=== PATIENT | female | born 1955 | race Caucasian/White ===

== ENCOUNTER 2020-02-19 13:21 | Outpatient (CLI) | payer MEDICARE ==
[2020-02-19 14:01] LABS: MEAN CORPUSCULAR HEMOGLOBIN 27.9 pg (27.0-34.8); MEAN CORPUSCULAR HGB CONC 31.1 g/dL (32.4-35.8); MEAN CORPUSCULAR VOLUME 89.7 fL (80-100); MEAN PLATELET VOLUME 7.4 fL (7.4-10.4); PLATELET COUNT 566 x10^3/uL (130-400); RED BLOOD COUNT 3.89 x10^6/uL (3.82-5.3); RED CELL DISTRIBUTION WIDTH 24.8 % (9.6-15.2)
[2020-02-19 14:08] LABS: ALBUMIN 3.6 g/dL (3.4-5.0); ANION GAP 6 mmol/L (5-15); CALCIUM 9.4 mg/dL (8.5-10.1); CHLORIDE 104 mmol/L (98-107); CHOLESTEROL, TOTAL 212 mg/dL (140-239)
[2020-02-19 14:18] LABS: % IRON SATURATION 7 % (20-55); ALANINE AMINOTRANSFERASE 15 U/L (12-78); ALKALINE PHOSPHATASE 125 U/L (45-117); BILIRUBIN,TOTAL 0.4 mg/dL (0.2-1.0); CHOL/HDL RATIO 2.6; CREATININE 0.88 mg/dL (0.55-1.02); HDL CHOL % 38 % (28-40); HDL CHOLESTEROL (DIRECT) 81 mg/dL (40-60); IRON LEVEL 34 mcg/dL (50-170); LDL CHOLESTEROL,CALCULATED 110 mg/dL (54-169); LDL/HDL RATIO 1.4 (0.5-3.0); TOTAL IRON BINDING CAPACITY 475 mcg/dL (250-450); TOTAL PROTEIN 7.6 g/dL (6.4-8.2); TRIGLYCERIDES 104 mg/dL (50-200); VLDL CHOLESTEROL 21 mg/dL (0-25)
[2020-02-19 14:54] LABS: HCT (SEDRATE) 34.9 % (34.6-47.8)
[2020-02-19 14:55] LABS: BASOPHILS # (AUTO) 0.06 x10^3/uL (0-0.1); BASOPHILS % (AUTO) 1 % (0-1); EOSINOPHILS # (AUTO) 0.08 x10^3/uL (0-0.4); EOSINOPHILS % (AUTO) 1 % (1-7); LYMPHOCYTES # (AUTO) 0.98 x10^3/uL (1-3.4); LYMPHOCYTES % (AUTO) 10 % (22-44); MD MORPH REVIEW ONLY; MONOCYTES # (AUTO) 0.37 x10^3/uL (0.2-0.8); MONOCYTES % (AUTO) 4 % (2-9); NEUTROPHILS # (AUTO) 8.04 x10^3/uL (1.8-6.8); NEUTROPHILS % (AUTO) 84 % (42-75)
[2020-02-19 14:57] LABS: RETICULOCYTE COUNT % 1.21 % (0.5-1.5)
[2020-02-19 14:58] LABS: <PLATELET ESTIMATE> INCREASED; <PLT MORPHOLOGY> NORMAL PLT MORPH; ANISOCYTOSIS 1+; HYPOCHROMIA 1+; POLYCHROMASIA 1+; RED BLOOD COUNT 3.89 x10^6/uL (3.82-5.3)
[2020-02-19 15:00] LABS: ABSOLUTE RETICS # 0.047 x10^6/uL (0.5-2.5)
[2020-02-19] MEDS ORDERED: OMNIPAQUE 350 MG/ML, 75ML BOTTLE ONE (15:01)
== END 2020-02-19 23:59 | disposition home or self-care (01) ==
LOC: RAD 13:21
PROVIDERS: ATTEND Internal Medicine
DX: K57.30 Diverticulosis of large intestine without perforation or abscess without bleeding (principal); K55.9 Vascular disorder of intestine, unspecified; E87.6 Hypokalemia; R63.0 Anorexia; N28.1 Cyst of kidney, acquired; K44.9 Diaphragmatic hernia without obstruction or gangrene; M85.80 Other specified disorders of bone density and structure, unspecified site; D64.9 Anemia, unspecified; Z79.899 Other long term (current) drug therapy
CPT/HCPCS: 36415; 74174; 80053; 80061; 82728; 83540; 83550; 83735; 84443; 85025; 85045; 85651; 86140; 86301; 86803; Q9967

== ENCOUNTER → 2020-03-01 | Outpatient (CLI) | payer MEDICARE ==
[~2020-03-01] MED LIST: OMNIPAQUE 350 MG/ML, 100ML BOTTLE ONE
== END | disposition home or self-care (01) ==
LOC: CFH 13:17
PROVIDERS: ATTEND Internal Medicine
DX: K76.0 Fatty (change of) liver, not elsewhere classified (principal); K44.9 Diaphragmatic hernia without obstruction or gangrene; K57.30 Diverticulosis of large intestine without perforation or abscess without bleeding; M48.54XA Collapsed vertebra, not elsewhere classified, thoracic region, initial encounter for fracture; M47.814 Spondylosis without myelopathy or radiculopathy, thoracic region; I70.0 Atherosclerosis of aorta; M85.88 Other specified disorders of bone density and structure, other site; N28.1 Cyst of kidney, acquired
CPT/HCPCS: 71260; 74178; Q9967

== ENCOUNTER 2020-03-17 10:07 | Outpatient (CLI) | payer MEDICARE ==
[2020-03-17] MEDS ORDERED: POLY17PO5 PO (11:48)
[2020-03-17] MEDS ORDERED: ASPI-691 PO (11:48)
[2020-03-17] MEDS ORDERED: OMEP40CA42 PO (11:48)
[2020-03-17] MEDS ORDERED: Iron PO (11:48)
[2020-03-17] MEDS ORDERED: IBUP200C8 PO (11:48)
[2020-03-17] MEDS ORDERED: ONDA4TAB7 PO (11:48)
[2020-03-29] MEDS ORDERED: OXYC-302 PO (09:30)
== END 2020-03-17 23:59 | disposition home or self-care (01) ==
LOC: STAR 10:07
PROVIDERS: ATTEND Internal Medicine Gastroenterology
DX: Z01.818 Encounter for other preprocedural examination (principal); R19.09 Other intra-abdominal and pelvic swelling, mass and lump
CPT/HCPCS: 93005

== ENCOUNTER 2020-03-18 11:01 | Day surgery (SDC) | payer MEDICARE ==
[~2020-03-18] VITALS: Ht 167.6 cm; Wt 58.3 kg
[~2020-03-18 11:01] MED LIST changes: +ASPI-691 PO; +IBUP200C8 PO; +Iron PO; +OMEP40CA42 PO; -OMNIPAQUE 350 MG/ML, 100ML BOTTLE ONE; +ONDA4TAB7 PO; +POLY17PO5 PO
[2020-03-18] MEDS ORDERED: LACTATED RINGERS 1,000 ML IV SCH (11:15)
[2020-03-18] MEDS ORDERED: CHLORHEXIDINE 15 ML UDC ONE (11:22)
[2020-03-18] MEDS ORDERED: CHLORHEXIDINE 15 ML UDC MM ONE (11:30)
[2020-03-18 11:40] VITALS: BP 160/87
[2020-03-18] MEDS ORDERED: ROCURONIUM 10 MG/ML,10ML ONE (13:49)
[2020-03-18] MEDS ORDERED: SUCCINYLCHOLINE 20 MG/ML, 10ML ONE (13:49)
[2020-03-18] MEDS ORDERED: PROPOFOL 10 MG/ML, 20ML ONE (13:49)
[2020-03-18] MEDS ORDERED: ONDANSETRON 2MG/ML, 2ML ONE (13:49)
[2020-03-18] MEDS ORDERED: DEXAMETHASONE 4 MG/ML, 1ML ONE (13:49)
[2020-03-18] MEDS ORDERED: FENTANYL PF 100 MCG/2ML ONE ×2 (13:58→15:32)
[2020-03-18] MEDS ORDERED: MIDAZOLAM 1 MG/ML, 2ML IV PRN (15:00)
[2020-03-18] MEDS ORDERED: LABETALOL 5MG/ML, 20ML IV PRN (15:00)
[2020-03-18] MEDS ORDERED: HALOPERIDOL 5 MG/ML IV PRN (15:00)
[2020-03-18] MEDS ORDERED: ALBUTEROL SULFATE 2.5 MG/3 ML NPPB PRN (15:00)
[2020-03-18] MEDS ORDERED: ONDANSETRON 2MG/ML, 2ML IV PRN (15:00)
[2020-03-18] MEDS ORDERED: MEPERIDINE/PF 25MG/ML,1ML IVPush PRN (15:00)
[2020-03-18] MEDS ORDERED: OXYcodone 5 MG/5 ML ORAL.SOL UDC PO PRN (15:00)
[2020-03-18] MEDS ORDERED: HYDROmorphone 2 MG/ML, 1ML IVPush PRN (15:00)
[2020-03-18] MEDS ORDERED: ONDANSETRON ODT 8 MG PO PRN (15:00)
[2020-03-18] MEDS ORDERED: EPHEDRINE 50 MG/ML, 1ML IVPush PRN (15:00)
[2020-03-18] MEDS ORDERED: hydrALAzine 20 MG/ML, 1ML IV PRN (15:00)
[2020-03-18] MEDS ORDERED: DIAZEPAM 5 MG/ML, 2ML IVPush PRN (15:00)
[2020-03-18] MEDS ORDERED: PROMETHAZINE 25 MG/ML, 1ML IV PRN (15:00)
[2020-03-18] MEDS ORDERED: ACETAMINOPHEN 325 MG TABLET PO PRN (15:00)
[2020-03-18] MEDS ORDERED: PROMETHAZINE 12.5 MG SUPP PR PRN (15:00)
[2020-03-18] MEDS ORDERED: LABETALOL 5MG/ML, 20ML ONE (15:16)
[2020-03-18] MEDS ORDERED: OXYcodone 5 MG/5 ML ORAL.SOL UDC ONE (15:32)
[2020-03-18] MEDS: FENTANYL PF 100 MCG/2ML IV PRN ×2 (15:33→15:38)
[2020-03-18] MEDS ORDERED: PIPERACILLIN/TAZO/PMX 3.375GM 50 ML IV ONE (15:40)
== END 2020-03-18 17:15 | disposition home or self-care (01) ==
LOC: OUT 11:01
PROVIDERS: ATTEND Internal Medicine Gastroenterology
DX: K86.89 Other specified diseases of pancreas (principal); C25.1 Malignant neoplasm of body of pancreas; S49.92XD Unspecified injury of left shoulder and upper arm, subsequent encounter; K55.9 Vascular disorder of intestine, unspecified; K59.00 Constipation, unspecified; D50.9 Iron deficiency anemia, unspecified; I10 Essential (primary) hypertension; F12.90 Cannabis use, unspecified, uncomplicated; R63.4 Abnormal weight loss; Z68.20 Body mass index [BMI] 20.0-20.9, adult; Z79.899 Other long term (current) drug therapy; Z98.890 Other specified postprocedural states; Z80.0 Family history of malignant neoplasm of digestive organs; X58.XXXD Exposure to other specified factors, subsequent encounter
CPT/HCPCS: 43242; 88172; 88173; 88177; 88307; J0330; J1100; J2405; J2543; J2704; J3010; J7120

== ENCOUNTER 2020-04-23 08:09 | Outpatient (CLI) | payer MEDICARE ==
[~2020-04-23 08:09] MED LIST changes: +OXYC-302 PO
[2020-04-23] MEDS ORDERED: MULT-658 PO (08:38)
[2020-04-26] MEDS ORDERED: IBUP-1902 PO (12:54)
[2020-04-26] MEDS ORDERED: OMEP-110 PO (12:54)
[2020-04-29] MEDS ORDERED: SENN-193 PO (15:26)
[2020-04-29] MEDS ORDERED: AMOX1TAB64 PO ×2 (15:26)
[2020-04-29] MEDS ORDERED: POLY17PO5 PO (15:26)
[2020-04-29] MEDS ORDERED: METR500T PO (15:26)
[2020-04-29] MEDS ORDERED: HYDR-3237 PO (15:27)
[2020-04-30] MEDS ORDERED: OXYC-302 PO (11:12)
[2020-04-30] MEDS ORDERED: AMOX1TAB64 PO (11:12)
== END 2020-04-23 23:59 | disposition home or self-care (01) ==
LOC: STAR 08:09
PROVIDERS: ATTEND Surgery
DX: Z11.59 Encounter for screening for other viral diseases (principal)
CPT/HCPCS: U0001-CS

== ENCOUNTER → 2020-05-14 | Outpatient (CLI) | payer MEDICARE ==
[~2020-05-14] MED LIST changes: +AMOX1TAB64 PO; +HYDR-3237 PO; +IBUP-1902 PO; +METR500T PO; +MULT-658 PO; +OMEP-110 PO; +OMNIPAQUE 350 MG/ML, 100ML BOTTLE ONE; +SENN-193 PO
== END | disposition home or self-care (01) ==
LOC: EDSTATUS 05-12 11:30 → RAD 09:23
PROVIDERS: ATTEND Internal Medicine Hematology & Oncology
DX: C25.2 Malignant neoplasm of tail of pancreas (principal); M51.34 Other intervertebral disc degeneration, thoracic region; K76.0 Fatty (change of) liver, not elsewhere classified; N28.1 Cyst of kidney, acquired; I70.0 Atherosclerosis of aorta; M48.54XA Collapsed vertebra, not elsewhere classified, thoracic region, initial encounter for fracture
CPT/HCPCS: 71260; 74177; Q9967

== ENCOUNTER 2020-05-28 06:07 | Day surgery (SDC) | payer MEDICARE ==
[~2020-05-28] VITALS: Ht 167.6 cm; Wt 54.0 kg
[~2020-05-28 06:07] MED LIST changes: -OMNIPAQUE 350 MG/ML, 100ML BOTTLE ONE
[2020-05-28] MEDS ORDERED: LACTATED RINGERS 1,000 ML IV SCH (06:40)
[2020-05-28 06:45] VITALS: BP 140/96
[2020-05-28] MEDS ORDERED: FENTANYL PF 100 MCG/2ML ONE (06:47)
[2020-05-28] MEDS ORDERED: BUPIVACAINE/PF 0.5% ONE (06:48)
[2020-05-28] MEDS ORDERED: HEPARIN 1,000 UNITS/ML, 10ML ONE (06:48)
[2020-05-28] MEDS ORDERED: OXYcodone 5 MG/5 ML ORAL.SOL UDC PO PRN (07:00)
[2020-05-28] MEDS ORDERED: HYDROmorphone 1 MG/ML, 1ML INJ IVPush PRN (07:00)
[2020-05-28] MEDS ORDERED: ONDANSETRON 2MG/ML, 2ML IVPush PRN (07:00)
[2020-05-28] MEDS ORDERED: PROMETHAZINE 25 MG/ML, 1ML IVPush PRN (07:00)
[2020-05-28] MEDS ORDERED: FENTANYL PF 100 MCG/2ML IV PRN (07:00)
[2020-05-28] MEDS ORDERED: DIAZEPAM 5 MG/ML, 2ML IVPush PRN (07:00)
[2020-05-28] MEDS ORDERED: CHLORHEXIDINE 15 ML UDC MM ONE (07:00)
[2020-05-28] MEDS ORDERED: ACETAMINOPHEN 325 MG TABLET PO PRN (07:00)
[2020-05-28] MEDS ORDERED: MEPERIDINE/PF 25MG/0.5ML IVPush PRN (07:00)
[2020-05-28] MEDS ORDERED: ONDANSETRON 2MG/ML, 2ML ONE (07:09)
[2020-05-28] MEDS ORDERED: SUGAMMADEX 200 MG/2 ML IVPush ONE (07:09)
[2020-05-28] MEDS ORDERED: CEFAZOLIN 1,000 MG ONE (07:09)
[2020-05-28] MEDS ORDERED: PROPOFOL 10 MG/ML, 20ML ONE (07:09)
[2020-05-28] MEDS ORDERED: SUCCINYLCHOLINE 20 MG/ML, 10ML ONE (07:09)
[2020-05-28] MEDS ORDERED: ROCURONIUM 10 MG/ML,10ML ONE (07:09)
[2020-05-28] MEDS ORDERED: ACETAMINOPHEN 650 MG/20.3 ML UDC ONE (08:42)
[2020-05-28] MEDS ORDERED: OXYcodone 5 MG/5 ML ORAL.SOL UDC ONE (08:42)
[2020-06-22] MEDS ORDERED: SERT50TA PO (13:04)
[2020-06-23] MEDS ORDERED: LIPA1CAP61 PO (17:24)
== END 2020-05-28 10:00 | disposition home or self-care (01) ==
LOC: OUT 06:07
PROVIDERS: ATTEND Surgery
DX: C25.9 Malignant neoplasm of pancreas, unspecified (principal); Z11.59 Encounter for screening for other viral diseases; K57.92 Diverticulitis of intestine, part unspecified, without perforation or abscess without bleeding; Z90.49 Acquired absence of other specified parts of digestive tract
CPT/HCPCS: 36415; 36561; 77001; 87635; C1788; J0330; J0690; J1644; J2405; J2704; J3010; J7120

== ENCOUNTER → 2020-06-07 | Outpatient (CLI) | payer MEDICARE | END | disposition home or self-care (01) | LOC: RAD 17:54 | PROVIDERS: ATTEND Internal Medicine Hematology & Oncology | DX: C25.2 Malignant neoplasm of tail of pancreas (principal) ==

== ENCOUNTER 2020-06-08 09:52 | Outpatient (CLI) | payer MEDICARE ==
[2020-06-08] MEDS ORDERED: VISIPAQUE 270 MG/ML, 50ML BOTTLE ONE (15:00)
[2020-06-22] MEDS ORDERED: SERT50TA PO (13:04)
[2020-06-23] MEDS ORDERED: LIPA1CAP61 PO (17:24)
[2020-06-27] MEDS ORDERED: METR500T PO (10:51)
== END 2020-06-08 23:59 | disposition home or self-care (01) ==
LOC: RAD 09:52
PROVIDERS: ATTEND Internal Medicine Hematology & Oncology
DX: Z45.2 Encounter for adjustment and management of vascular access device (principal); C25.2 Malignant neoplasm of tail of pancreas; I10 Essential (primary) hypertension; Z87.891 Personal history of nicotine dependence
CPT/HCPCS: 36598; J1642; Q9966; 76000

== ENCOUNTER 2020-06-11 06:21 | Day surgery (SDC) | payer MEDICARE ==
[~2020-06-11] VITALS: Ht 167.6 cm; Wt 52.3 kg
[~2020-06-11 06:21] MED LIST changes: +BUPIVACAINE/PF 0.5% ONE
[2020-06-11] MEDS ORDERED: FENTANYL PF 250 MCG/5ML ONE (06:26)
[2020-06-11] MEDS ORDERED: MIDAZOLAM 1 MG/ML, 2ML ONE (06:26)
[2020-06-11] MEDS ORDERED: LACTATED RINGERS 1,000 ML IV SCH (06:34)
[2020-06-11] MEDS ORDERED: CHLORHEXIDINE 15 ML UDC MM STA (06:36)
[2020-06-11] MEDS ORDERED: CHLORHEXIDINE 15 ML UDC ONE (06:37)
[2020-06-11] MEDS ORDERED: PROC10TA2 PO (06:42)
[2020-06-11] MEDS ORDERED: ONDA4TAB7 PO (06:42)
[2020-06-11] MEDS ORDERED: DIPH1TAB PO (06:42)
[2020-06-11 06:56] VITALS: BP 122/79
[2020-06-11] MEDS ORDERED: OXYcodone 5 MG/5 ML ORAL.SOL UDC PO PRN (07:00)
[2020-06-11] MEDS ORDERED: PROMETHAZINE 25 MG/ML, 1ML IVPush PRN (07:00)
[2020-06-11] MEDS ORDERED: morphine SULFATE 10 MG/ML, 1ML IVPush PRN (07:00)
[2020-06-11] MEDS ORDERED: LABETALOL 5MG/ML, 20ML IV PRN (07:00)
[2020-06-11] MEDS ORDERED: hydrALAzine 20 MG/ML, 1ML IV PRN (07:00)
[2020-06-11] MEDS ORDERED: HALOPERIDOL 5 MG/ML IV PRN (07:00)
[2020-06-11] MEDS ORDERED: HYDROmorphone 1 MG/ML, 1ML INJ IVPush PRN (07:00)
[2020-06-11] MEDS ORDERED: MEPERIDINE/PF 25MG/0.5ML IVPush PRN (07:00)
[2020-06-11] MEDS ORDERED: DEXAMETHASONE 4 MG/ML, 1ML ONE (07:01)
[2020-06-11] MEDS ORDERED: ONDANSETRON 2MG/ML, 2ML ONE (07:01)
[2020-06-11] MEDS ORDERED: CEFAZOLIN 1,000 MG ONE (07:01)
[2020-06-11] MEDS ORDERED: FENTANYL PF 100 MCG/2ML ONE (07:36)
[2020-06-11] MEDS ORDERED: OXYcodone 5 MG/5 ML ORAL.SOL UDC ONE (07:36)
[2020-06-11] MEDS: FENTANYL PF 100 MCG/2ML IV PRN ×2 (07:38→07:44)
[2020-06-22] MEDS ORDERED: SERT50TA PO (13:04)
[2020-06-23] MEDS ORDERED: LIPA1CAP61 PO (17:24)
[2020-06-27] MEDS ORDERED: METR500T PO (10:51)
== END 2020-06-11 09:10 | disposition home or self-care (01) ==
LOC: OUT 06:21
PROVIDERS: ATTEND Surgery
DX: T82.848A Pain due to vascular prosthetic devices, implants and grafts, initial encounter (principal); Z11.59 Encounter for screening for other viral diseases; C25.9 Malignant neoplasm of pancreas, unspecified; Y83.8 Other surgical procedures as the cause of abnormal reaction of the patient, or of later complication, without mention of misadventure at the time of the procedure; K21.9 Gastro-esophageal reflux disease without esophagitis; F12.90 Cannabis use, unspecified, uncomplicated; Z87.891 Personal history of nicotine dependence; Z72.89 Other problems related to lifestyle; Z79.899 Other long term (current) drug therapy; Z90.710 Acquired absence of both cervix and uterus; Z98.890 Other specified postprocedural states; Z82.49 Family history of ischemic heart disease and other diseases of the circulatory system; Z90.49 Acquired absence of other specified parts of digestive tract
CPT/HCPCS: 36590; 87070; 87075; 87205; 87635; J0690; J1100; J2250; J2405; J3010; J7120

== ENCOUNTER 2020-06-15 14:04 | Outpatient (CLI) | payer MEDICARE ==
[~2020-06-15 14:04] MED LIST changes: -BUPIVACAINE/PF 0.5% ONE; +DIPH1TAB PO; +PROC10TA2 PO
[2020-06-22] MEDS ORDERED: SERT50TA PO (13:04)
[2020-06-23] MEDS ORDERED: LIPA1CAP61 PO (17:24)
[2020-06-27] MEDS ORDERED: METR500T PO (10:51)
== END 2020-06-15 23:59 | disposition home or self-care (01) ==
LOC: RAD 14:04
PROVIDERS: ATTEND Internal Medicine Hematology & Oncology
DX: C25.2 Malignant neoplasm of tail of pancreas (principal)
CPT/HCPCS: 36573; C1751

== ENCOUNTER → 2020-06-29 | Outpatient (CLI) | payer MEDICARE ==
[~2020-06-29] MED LIST changes: +LIPA1CAP61 PO; +SERT50TA PO
== END | disposition home or self-care (01) ==
LOC: WOUND 13:52
PROVIDERS: ATTEND Nurse Practitioner Family
DX: T81.31XA Disruption of external operation (surgical) wound, not elsewhere classified, initial encounter (principal); C25.2 Malignant neoplasm of tail of pancreas; I10 Essential (primary) hypertension; K21.9 Gastro-esophageal reflux disease without esophagitis; E43 Unspecified severe protein-calorie malnutrition; Z68.1 Body mass index [BMI] 19.9 or less, adult; Z85.07 Personal history of malignant neoplasm of pancreas; Z87.891 Personal history of nicotine dependence; Z90.49 Acquired absence of other specified parts of digestive tract; Z79.899 Other long term (current) drug therapy; Y83.8 Other surgical procedures as the cause of abnormal reaction of the patient, or of later complication, without mention of misadventure at the time of the procedure; Y92.238 Other place in hospital as the place of occurrence of the external cause
CPT/HCPCS: 97597; G0463

== ENCOUNTER 2020-07-06 13:49 | Outpatient (CLI) | payer MEDICARE | END 2020-07-06 23:59 | disposition home or self-care (01) | LOC: WOUND 13:49 | PROVIDERS: ATTEND Nurse Practitioner Family | DX: T81.31XD Disruption of external operation (surgical) wound, not elsewhere classified, subsequent encounter (principal); C25.2 Malignant neoplasm of tail of pancreas; I10 Essential (primary) hypertension; K21.9 Gastro-esophageal reflux disease without esophagitis; I70.0 Atherosclerosis of aorta; F12.90 Cannabis use, unspecified, uncomplicated; E43 Unspecified severe protein-calorie malnutrition; Z68.1 Body mass index [BMI] 19.9 or less, adult; Z87.891 Personal history of nicotine dependence; Z90.49 Acquired absence of other specified parts of digestive tract; Z90.710 Acquired absence of both cervix and uterus; Z79.899 Other long term (current) drug therapy; Y83.8 Other surgical procedures as the cause of abnormal reaction of the patient, or of later complication, without mention of misadventure at the time of the procedure | CPT/HCPCS: 97597 ==

== ENCOUNTER → 2020-07-13 | Outpatient (CLI) | payer MEDICARE | END | disposition home or self-care (01) | LOC: WOUND 14:18 | PROVIDERS: ATTEND Nurse Practitioner Family | DX: T81.31XD Disruption of external operation (surgical) wound, not elsewhere classified, subsequent encounter (principal); C25.2 Malignant neoplasm of tail of pancreas; I10 Essential (primary) hypertension; K21.9 Gastro-esophageal reflux disease without esophagitis; F12.90 Cannabis use, unspecified, uncomplicated; I70.0 Atherosclerosis of aorta; E43 Unspecified severe protein-calorie malnutrition; Z68.1 Body mass index [BMI] 19.9 or less, adult; Z87.891 Personal history of nicotine dependence; Z90.49 Acquired absence of other specified parts of digestive tract; Z79.899 Other long term (current) drug therapy; Z90.710 Acquired absence of both cervix and uterus; Y83.8 Other surgical procedures as the cause of abnormal reaction of the patient, or of later complication, without mention of misadventure at the time of the procedure | CPT/HCPCS: 97597 ==

== ENCOUNTER → 2020-07-20 | Outpatient (CLI) | payer MEDICARE | END | disposition home or self-care (01) | LOC: WOUND 14:30 | PROVIDERS: ATTEND Nurse Practitioner Family | DX: T81.31XD Disruption of external operation (surgical) wound, not elsewhere classified, subsequent encounter (principal); C25.2 Malignant neoplasm of tail of pancreas; I70.0 Atherosclerosis of aorta; I10 Essential (primary) hypertension; K21.9 Gastro-esophageal reflux disease without esophagitis; Z87.891 Personal history of nicotine dependence; Z90.411 Acquired partial absence of pancreas; Z90.81 Acquired absence of spleen; Z90.710 Acquired absence of both cervix and uterus; Z90.49 Acquired absence of other specified parts of digestive tract; Y83.8 Other surgical procedures as the cause of abnormal reaction of the patient, or of later complication, without mention of misadventure at the time of the procedure | CPT/HCPCS: 97597 ==

== ENCOUNTER 2020-07-27 14:57 | Outpatient (CLI) | payer MEDICARE | END 2020-07-27 23:59 | disposition home or self-care (01) | LOC: WOUND 14:57 | PROVIDERS: ATTEND Nurse Practitioner Family | DX: T81.31XD Disruption of external operation (surgical) wound, not elsewhere classified, subsequent encounter (principal); C25.2 Malignant neoplasm of tail of pancreas; I70.0 Atherosclerosis of aorta; I10 Essential (primary) hypertension; K21.9 Gastro-esophageal reflux disease without esophagitis; E43 Unspecified severe protein-calorie malnutrition; Z87.891 Personal history of nicotine dependence; Z90.411 Acquired partial absence of pancreas; Z90.81 Acquired absence of spleen; Z90.710 Acquired absence of both cervix and uterus; Z90.49 Acquired absence of other specified parts of digestive tract; F12.90 Cannabis use, unspecified, uncomplicated; Z79.899 Other long term (current) drug therapy; Y83.8 Other surgical procedures as the cause of abnormal reaction of the patient, or of later complication, without mention of misadventure at the time of the procedure | CPT/HCPCS: G0463 ==

== ENCOUNTER 2020-08-03 14:03 | Outpatient (CLI) | payer MEDICARE | END 2020-08-03 23:59 | disposition home or self-care (01) | LOC: WOUND 14:03 | PROVIDERS: ATTEND Nurse Practitioner Family | DX: T81.31XD Disruption of external operation (surgical) wound, not elsewhere classified, subsequent encounter (principal); C25.2 Malignant neoplasm of tail of pancreas; I70.0 Atherosclerosis of aorta; I10 Essential (primary) hypertension; K21.9 Gastro-esophageal reflux disease without esophagitis; E43 Unspecified severe protein-calorie malnutrition; F12.90 Cannabis use, unspecified, uncomplicated; Z87.891 Personal history of nicotine dependence; Z90.411 Acquired partial absence of pancreas; Z90.81 Acquired absence of spleen; Z90.710 Acquired absence of both cervix and uterus; Z90.49 Acquired absence of other specified parts of digestive tract; Z79.899 Other long term (current) drug therapy; Y83.8 Other surgical procedures as the cause of abnormal reaction of the patient, or of later complication, without mention of misadventure at the time of the procedure | CPT/HCPCS: G0463 ==

== ENCOUNTER → 2020-09-16 | Outpatient (CLI) | payer MEDICARE ==
[~2020-09-16] MED LIST changes: +OMNIPAQUE 350 MG/ML, 100ML BOTTLE ONE
== END | disposition home or self-care (01) ==
LOC: CFH 08:46
PROVIDERS: ATTEND Internal Medicine Hematology & Oncology
DX: C25.2 Malignant neoplasm of tail of pancreas (principal); M48.54XA Collapsed vertebra, not elsewhere classified, thoracic region, initial encounter for fracture; N28.1 Cyst of kidney, acquired
CPT/HCPCS: 71260; 74177; Q9967

== ENCOUNTER → 2020-09-22 | Outpatient (CLI) | payer MEDICARE ==
[~2020-09-22] MED LIST changes: -OMNIPAQUE 350 MG/ML, 100ML BOTTLE ONE
== END | disposition home or self-care (01) ==
LOC: WOUND 12:30
PROVIDERS: ATTEND Internal Medicine
DX: T81.31XD Disruption of external operation (surgical) wound, not elsewhere classified, subsequent encounter (principal); C25.2 Malignant neoplasm of tail of pancreas; C25.1 Malignant neoplasm of body of pancreas; I70.0 Atherosclerosis of aorta; I10 Essential (primary) hypertension; K21.9 Gastro-esophageal reflux disease without esophagitis; E43 Unspecified severe protein-calorie malnutrition; F12.90 Cannabis use, unspecified, uncomplicated; Z87.891 Personal history of nicotine dependence; Z90.411 Acquired partial absence of pancreas; Z90.81 Acquired absence of spleen; Z90.710 Acquired absence of both cervix and uterus; Z90.49 Acquired absence of other specified parts of digestive tract; Z79.899 Other long term (current) drug therapy; Z68.1 Body mass index [BMI] 19.9 or less, adult; Y83.8 Other surgical procedures as the cause of abnormal reaction of the patient, or of later complication, without mention of misadventure at the time of the procedure
CPT/HCPCS: 87070; 87075; 87205; 97597; G0463

== ENCOUNTER → 2020-10-12 | Outpatient (CLI) | payer MEDICARE | END | disposition home or self-care (01) | LOC: WOUND 09:30 | PROVIDERS: ATTEND Nurse Practitioner Family | DX: T81.31XD Disruption of external operation (surgical) wound, not elsewhere classified, subsequent encounter (principal); C25.2 Malignant neoplasm of tail of pancreas; C25.1 Malignant neoplasm of body of pancreas; I70.0 Atherosclerosis of aorta; A31.1 Cutaneous mycobacterial infection; I10 Essential (primary) hypertension; K21.9 Gastro-esophageal reflux disease without esophagitis; E43 Unspecified severe protein-calorie malnutrition; F12.90 Cannabis use, unspecified, uncomplicated; Z87.891 Personal history of nicotine dependence; Z90.411 Acquired partial absence of pancreas; Z90.81 Acquired absence of spleen; Z90.710 Acquired absence of both cervix and uterus; Z90.49 Acquired absence of other specified parts of digestive tract; Z79.899 Other long term (current) drug therapy; Z68.1 Body mass index [BMI] 19.9 or less, adult; Y83.8 Other surgical procedures as the cause of abnormal reaction of the patient, or of later complication, without mention of misadventure at the time of the procedure | CPT/HCPCS: G0463 ==

== ENCOUNTER 2021-03-18 06:19 | Inpatient (IN) | payer MEDICARE ==
[~2021-03-18] VITALS: Ht 167.6 cm; Wt 66.3 kg
[~2021-03-18 06:19] MED LIST changes: -OMEP40CA42 PO; +OMEP40CA8 PO; -OXYC-302 PO; +OXYC1TAB12 PO
[2021-03-18] MEDS ORDERED: MORPHINE SULFATE 4 MG/ML, 1ML ONE (06:27)
[2021-03-18] MEDS ORDERED: ONDANSETRON 2MG/ML, 2ML ONE ×3 (06:27→21:24)
[2021-03-18] MEDS ORDERED: MORPHINE SULFATE 4 MG/ML, 1ML IVPush ONE (06:30)
[2021-03-18] MEDS ORDERED: ONDANSETRON 2MG/ML, 2ML IVPush ONE (06:30)
[2021-03-18] MEDS ORDERED: sulfa abx (06:44)
[2021-03-18] MEDS ORDERED: vancomycin (06:44)
[2021-03-18] MEDS ORDERED: IBUP-1221 PO (06:45)
[2021-03-18] MEDS ORDERED: moxifloxacin (06:45)
--- NOTE | 2021-03-18 06:45 | NUR ---
pt had a glf at home, denies loc or head impact, now has significant pain in right hip, external leg rotation and shortening noted on right side. pt recently completed chemo treatment for pancreatic cancer. pt resting on gurney, bed in lowest, rails engaged, labs drawn and sent, call light on lap, bp/spo2 monitoring in place, wctm. 100mcg fentanyl enroute
[2021-03-18 06:52] LABS: BASOPHILS % (AUTO) 1 % (0-1); EOSINOPHILS % (AUTO) 2 % (1-7); LYMPHOCYTES % (AUTO) 11 % (22-44); MEAN CORPUSCULAR HEMOGLOBIN 31.7 pg (27.0-34.8); MEAN CORPUSCULAR HGB CONC 32.3 g/dL (32.4-35.8); MONOCYTES % (AUTO) 6 % (2-9); NEUTROPHILS % (AUTO) 81 % (42-75); PLATELET COUNT 409 x10^3/uL (130-400); RED BLOOD COUNT 3.49 x10^6/uL (3.82-5.3); RED CELL DISTRIBUTION WIDTH 16.3 % (9.6-15.2)
--- NOTE | 2021-03-18 06:55 | NUR ---
report to yisel stewart, pt care transferred at this time.
[2021-03-18 06:58] LABS: ALBUMIN 4.4 g/dL (3.4-5.0); ANION GAP 9 mmol/L (5-15); CALCIUM 9.8 mg/dL (8.5-10.1); CHLORIDE 108 mmol/L (98-107); CREATININE 0.96 mg/dL (0.55-1.02)
[2021-03-18] MEDS ORDERED: SODIUM CHLORIDE 0.9% 1,000 ML IV ONE (07:30)
--- NOTE | 2021-03-18 07:57 | NUR ---
PT LAST ORAL INTAKE WAS YOGURT 03/18 AT 1900
[2021-03-18] MEDS ORDERED: ONDANSETRON 2MG/ML, 2ML IVPush PRN ×2 (08:00→18:30)
--- NOTE | 2021-03-18 08:16 | NUR ---
OFF THE FLOOR TO CT
--- NOTE | 2021-03-18 08:36 | NUR ---
REPORT TO [facility] IN[facility]
[2021-03-18 09:45] VITALS: BP 124/80
[2021-03-18 12:00] VITALS: BP 120/78
[2021-03-18] MEDS: morphine SULFATE 10 MG/ML, 1ML IVPush PRN ×2 (12:21→16:36)
[2021-03-18] MEDS: FLUOXETINE HCL 20 MG CAPSULE PO SCH (12:21)
[2021-03-18] MEDS: SULFAMETH./TRIMETHOPRIM DS 800MG/160MG TABLET PO SCH (12:22)
[2021-03-18] MEDS: LEVOFLOXACIN 750 MG TABLET PO SCH (12:22)
[2021-03-18] MEDS: VANCOMYCIN 50 MG/ML ORAL SUSP PO SCH (13:20)
[2021-03-18] MEDS ORDERED: FENTANYL PF 100 MCG/2ML ONE (18:09)
[2021-03-18] MEDS ORDERED: MIDAZOLAM 1 MG/ML, 2ML ONE (18:09)
[2021-03-18] MEDS ORDERED: FENTANYL PF 100 MCG/2ML IV PRN (18:30)
[2021-03-18] MEDS ORDERED: HYDROcodone/APAP 7.5-325MG/15ML UDC PO PRN (18:30)
[2021-03-18] MEDS ORDERED: PROMETHAZINE 25 MG/ML, 1ML IVPush PRN (18:30)
[2021-03-18] MEDS ORDERED: MEPERIDINE/PF 25MG/0.5ML IVPush PRN (18:30)
[2021-03-18] MEDS ORDERED: OXYcodone 5 MG/5 ML ORAL.SOL UDC PO PRN (18:30)
[2021-03-18] MEDS ORDERED: HYDROmorphone 1 MG/ML, 1ML INJ IVPush PRN (18:30)
[2021-03-18] MEDS ORDERED: EPHEDRINE 50 MG/ML, 1ML ONE (18:50)
[2021-03-18] MEDS ORDERED: DEXAMETHASONE 4 MG/ML, 1ML ONE (18:50)
[2021-03-18] MEDS ORDERED: GLYCOPYRROLATE 0.2MG/1ML, 5ML ONE (18:50)
[2021-03-18] MEDS ORDERED: ROCURONIUM 10 MG/ML,10ML ONE (18:50)
[2021-03-18] MEDS ORDERED: NEOSTIGMINE 1 MG/ML, 10ML ONE (18:50)
[2021-03-18] MEDS ORDERED: PROPOFOL 10 MG/ML, 20ML ONE (18:50)
[2021-03-18] MEDS ORDERED: CEFAZOLIN 1,000 MG ONE (18:50)
[2021-03-18] MEDS ORDERED: SUCCINYLCHOLINE 20 MG/ML, 10ML ONE (18:50)
[2021-03-18] MEDS ORDERED: TRANEXAMIC ACID 100 MG/ML, 10ML ONE ×2 (20:07)
[2021-03-18] MEDS ORDERED: OXYcodone 5 MG/5 ML ORAL.SOL UDC ONE (21:24)
[2021-03-18 22:00] VITALS: BP 106/71
[2021-03-18] MEDS ORDERED: PLEASE ENTER DRUG ALLERGIES MC SCH (23:00)
[2021-03-19 00:01] VITALS: BP 110/71
[2021-03-19] MEDS: SULFAMETH./TRIMETHOPRIM DS 800MG/160MG TABLET PO SCH ×3 (00:35→22:10)
[2021-03-19] MEDS: morphine SULFATE 10 MG/ML, 1ML IVPush PRN ×4 (00:36→12:58)
[2021-03-19] MEDS: VANCOMYCIN 50 MG/ML ORAL SUSP PO SCH ×3 (00:36→22:10)
[2021-03-19] MEDS: CEFAZOLIN PMX 2GM/50ML 50 ML IVPB SCH ×2 (03:22→11:11)
[2021-03-19] MEDS: SODIUM CHLORIDE 0.9% 1,000 ML IV SCH ×2 (03:22→10:20)
[2021-03-19 03:39] VITALS: BP 94/63
[2021-03-19 05:07] LABS: ALBUMIN 3.2 g/dL (3.4-5.0); ANION GAP 9 mmol/L (5-15); CALCIUM 8.4 mg/dL (8.5-10.1); CHLORIDE 105 mmol/L (98-107)
[2021-03-19 05:15] LABS: ALANINE AMINOTRANSFERASE 22 U/L (12-78); ALKALINE PHOSPHATASE 127 U/L (45-117); BILIRUBIN,TOTAL 0.2 mg/dL (0.2-1.0); CREATININE 1.03 mg/dL (0.55-1.02); TOTAL PROTEIN 6.2 g/dL (6.4-8.2)
[2021-03-19 05:22] LABS: HCT (SEDRATE) 22.6 % (34.6-47.8)
[2021-03-19 06:45] VITALS: BP 98/66
[2021-03-19] MEDS: FLUOXETINE HCL 20 MG CAPSULE PO SCH (09:15)
[2021-03-19] MEDS: LEVOFLOXACIN 750 MG TABLET PO SCH (09:16)
[2021-03-19] MEDS: ASPIRIN 81 MG TABLET EC PO SCH ×2 (09:16→22:10)
[2021-03-19] MEDS: ENOXAPARIN 40 MG/0.4 ML SQ SCH (12:58)
[2021-03-19 13:16] VITALS: BP 109/70
[2021-03-19] MEDS ORDERED: OXYcodone IR 5MG TABLET PO PRN (17:00)
[2021-03-19] MEDS: OXYcodone IR 5MG TABLET PO PRN ×2 (17:59→22:10)
[2021-03-19] MEDS: ACETAMINOPHEN 500 MG TABLET PO SCH (17:59)
[2021-03-19 20:22] VITALS: BP 91/58
[2021-03-20 00:40] VITALS: BP 96/60
[2021-03-20] MEDS: ACETAMINOPHEN 500 MG TABLET PO SCH ×3 (01:05→17:19)
[2021-03-20] MEDS: OXYcodone IR 5MG TABLET PO PRN ×4 (02:17→21:52)
[2021-03-20] MEDS: SODIUM CHLORIDE 0.9% 1,000 ML IV SCH ×2 (06:21→17:21)
[2021-03-20 07:02] VITALS: BP 90/55
[2021-03-20] MEDS: VANCOMYCIN 50 MG/ML ORAL SUSP PO SCH ×2 (09:23→20:37)
[2021-03-20] MEDS: LEVOFLOXACIN 750 MG TABLET PO SCH (09:24)
[2021-03-20] MEDS: SULFAMETH./TRIMETHOPRIM DS 800MG/160MG TABLET PO SCH ×2 (09:29→20:37)
[2021-03-20] MEDS: ASPIRIN 81 MG TABLET EC PO SCH ×2 (09:29→20:37)
[2021-03-20] MEDS: FLUOXETINE HCL 20 MG CAPSULE PO SCH (09:29)
[2021-03-20 12:25] VITALS: BP 97/61
[2021-03-20] MEDS: ENOXAPARIN 40 MG/0.4 ML SQ SCH (12:32)
[2021-03-20 19:48] VITALS: BP 107/68
[2021-03-21 01:09] VITALS: BP 116/56
[2021-03-21] MEDS: ACETAMINOPHEN 500 MG TABLET PO SCH ×2 (01:21→08:41)
[2021-03-21] MEDS: OXYcodone IR 5MG TABLET PO PRN ×4 (04:17→16:23)
[2021-03-21 07:15] VITALS: BP 102/66
[2021-03-21] MEDS: VANCOMYCIN 50 MG/ML ORAL SUSP PO SCH (08:41)
[2021-03-21] MEDS: ASPIRIN 81 MG TABLET EC PO SCH (08:41)
[2021-03-21] MEDS: SULFAMETH./TRIMETHOPRIM DS 800MG/160MG TABLET PO SCH (08:42)
[2021-03-21] MEDS: LEVOFLOXACIN 750 MG TABLET PO SCH (08:42)
[2021-03-21] MEDS: FLUOXETINE HCL 20 MG CAPSULE PO SCH (08:42)
[2021-03-21] MEDS: SODIUM CHLORIDE 0.9% 1,000 ML IV SCH (08:56)
[2021-03-21] MEDS ORDERED: CALCIUM CARBONATE 500 MG TAB.CHEW PO PRN (09:00)
[2021-03-21] MEDS: ENOXAPARIN 40 MG/0.4 ML SQ SCH (12:30)
[2021-03-21 13:15] VITALS: BP 101/63
[2021-03-21] MEDS ORDERED: VANC1VIA36 PO (13:45)
[2021-03-21] MEDS ORDERED: SULF-23 PO (13:45)
[2021-03-21] MEDS ORDERED: FLUO20CA23 PO (13:45)
[2021-03-21] MEDS ORDERED: CALC200T24 PO (13:45)
[2021-03-21] MEDS ORDERED: ASPI81TA45 PO (13:45)
[2021-03-21] MEDS ORDERED: ENOX40SY4 SQ (13:45)
[2021-03-21] MEDS ORDERED: MOXI400T30 PO (13:45)
[2021-03-21] MEDS ORDERED: OXYC5TAB98 PO (13:45)
[2021-03-21] MEDS ORDERED: ACET-1600 PO (13:45)
== END 2021-03-21 16:34 | DRG 480 ==
LOC: SUATTDRO 07:39 → ED 09:10 → EDIP 09:12 → 4NE 09:16
PROVIDERS: ADMIT Internal Medicine; ATTEND Internal Medicine
PROC: 0QS606Z Reposition Right Upper Femur with Intramedullary Internal Fixation Device, Open Approach (ICD-10-PCS; principal; 2021-03-18 18:30)
DX: S72.141A Displaced intertrochanteric fracture of right femur, initial encounter for closed fracture (principal); E43 Unspecified severe protein-calorie malnutrition; D84.9 Immunodeficiency, unspecified; D63.8 Anemia in other chronic diseases classified elsewhere; K21.9 Gastro-esophageal reflux disease without esophagitis; F32.9 Major depressive disorder, single episode, unspecified; W06.XXXA Fall from bed, initial encounter; Y92.003 Bedroom of unspecified non-institutional (private) residence as the place of occurrence of the external cause; Y93.01 Activity, walking, marching and hiking; Z74.01 Bed confinement status; Z79.82 Long term (current) use of aspirin; Z85.07 Personal history of malignant neoplasm of pancreas; Z90.411 Acquired partial absence of pancreas; Z90.711 Acquired absence of uterus with remaining cervical stump; Z90.81 Acquired absence of spleen; Z92.21 Personal history of antineoplastic chemotherapy; Z79.2 Long term (current) use of antibiotics; D47.3 Essential (hemorrhagic) thrombocythemia; Z87.19 Personal history of other diseases of the digestive system; Z20.822 Contact with and (suspected) exposure to COVID-19
CPT/HCPCS: 36415; 71045; 72170; 76000; 80048; 80053; 82040; 85025; 85651; 86140; 87635; 88304; 88311; 93005; 96374; 96375; 99285; C1713; G0378; J0690; J1100; J1650; J2250; J2405; J2704; J2710; J3010; J3370; C1769; J0330; J2270; J7030

== ENCOUNTER → 2021-06-17 | Outpatient (CLI) | payer MEDICARE ==
[~2021-06-17] MED LIST changes: +ACET-1600 PO; +ASPI81TA45 PO; +CALC200T24 PO; +ENOX40SY4 SQ; +FLUO20CA23 PO; +IBUP-1221 PO; +MOXI400T30 PO; +OMNIPAQUE 350 MG/ML, 100ML BOTTLE ONE; -OXYC1TAB12 PO; +OXYC1TAB14 PO; +OXYC5TAB98 PO; +SULF-23 PO; +VANC1VIA36 PO; +moxifloxacin; +sulfa abx; +vancomycin
== END | disposition home or self-care (01) ==
LOC: RAD 10:44
PROVIDERS: ATTEND Internal Medicine Hematology & Oncology
DX: C25.2 Malignant neoplasm of tail of pancreas (principal); N28.1 Cyst of kidney, acquired; M40.204 Unspecified kyphosis, thoracic region; J98.11 Atelectasis; R11.0 Nausea; R19.7 Diarrhea, unspecified; E86.0 Dehydration; D72.829 Elevated white blood cell count, unspecified; D47.3 Essential (hemorrhagic) thrombocythemia; D63.0 Anemia in neoplastic disease; Z45.2 Encounter for adjustment and management of vascular access device; Z79.899 Other long term (current) drug therapy; T82.898A Other specified complication of vascular prosthetic devices, implants and grafts, initial encounter
CPT/HCPCS: 71260; 74177; 78306; A9503; Q9967